=== PATIENT | male | born 1940 | race Caucasian/White ===

== ENCOUNTER 2018-09-28 15:21 | Emergency (ER) | payer MEDICARE, OTHER ==
--- NOTE | 2018-09-28 15:24 | EDM.PDOC ---
ED HPI GENERAL MEDICAL PROBLEM - General Chief Complaint: General Stated Complaint: Circulation Time Seen by Provider: 09/28/18 15:24 Source of Information: Reports: Patient, Family (), Old Records ([facility] chart/EMR) History Limitations: Reports: No Limitations - History of Present Illness INITIAL COMMENTS - FREE TEXT/NARRATIVE: The patient was brought to the emergency room via private automobile by his for evaluation of a three-day history of nonspecific "burning" and 3-4/10 bilateral intermittent foot pain with no history of acute injury. He has been working in the cold and snow during extended periods of time during the last several days, however has apparently been dressed appropriately including footwear with no distinct history of frostbite injury. His arthritis is otherwise been stable with exception of nonspecific right popliteal discomfort about 3 weeks ago with no history of dependent edema, etc.. The patient denies any chest pain/pressure, heart flutter, dizziness, orthostasis, orthopnea, diaphoresis, paresthesias, recent decreased exercise tolerance, or any other anginal-type symptoms. No recent history of abdominal pain, heartburn, nausea, diarrhea, melena, gross hematochezia, or any food intolerance, including fatty foods, etc.. The patient also denies any recent fever, cough, wheezing, dyspnea , etc.. He has noticed occasional mild cyanosis with the above symptoms with no pallor, paresthesias, neurological deficits, etc. Onset: Gradual Duration: Day(s):, Getting Worse, Intermittent Location: Reports: Lower Extremity, Left, Lower Extremity, Right. Denies: Head , Face, Neck, Chest, Abdomen, Back, Pelvis, Upper Extremity, Left, Upper Extremity, Right, Radiates to Quality: Reports: Ache, Burning Severity: Mild Improves with: Reports: None Worsens with: Reports: None Context: Reports: Other (As above). Denies: Sick Contact, Trauma Associated Symptoms: Denies: Confusion, Chest Pain, Cough, Diaphoresis, Fever/ Chills, Headaches, Loss of Appetite, Malaise, Nausea/Vomiting, Shortness of Breath, Syncope, Weakness Treatments [employer]: Reports: Other (see below) (None) Bilateral Feet Pain Score (Numeric/FACES): 3 - Related Data Allergies Allergy/AdvReac Type Severity Reaction Status Date / Time No Known Allergies Allergy Verified 09/28/18 17:30 Home Meds: Home Meds . [No Known Home Meds] 09/28/18 [History] Past Medical History HEENT History: Reports: Cataract, Impaired Vision, Other (See Below). Denies: Allergic Rhinitis, Glaucoma, Hard of Hearing, Macular Degeneration, Otitis Media , Retinal Detachment Other HEENT History: Patient wears glasses. Cardiovascular History: Reports: None. Denies: Afib, Aneurysm, Arrhythmia, Blood Clots/VTE/DVT, CAD, Heart Failure, Heart Murmur, High Cholesterol, Hypertension, NV, PVD, Syncope Respiratory History: Reports: Intubation, Previous, Sleep Apnea, Other (See Below). Denies: Asthma, Bronchitis, Recurrent, COPD, Intubation, Difficult, PE , Pneumothorax, TB Other Respiratory History: Sleep apnea with patient compliant with his CPAP. Gastrointestinal History: Reports: Cholelithiasis. Denies: Bowel Obstruction, Celiac Disease, Chronic Constipation, Chronic Diarrhea, Colon Polyp, Fecal Incontinence, Gastritis, GERD, GI Bleed, Hepatitis, Hiatal Hernia, Inflammatory Bowel Disease, Irritable Bowel Syndrome, Jaundice, Pancreatitis, PUD Genitourinary History: Reports: BPH, Prostate Disorder. Denies: Acute Renal Failure, Chronic Renal Insuffiency, Renal Calculus, Retention, Urinary, STD, Urinary Incontinence, UTI, Recurrent Musculoskeletal History: Reports: Arthritis, Back Pain, Chronic, Fracture, Neck Pain, Chronic, Osteoarthritis. Denies: Amputation, Gout, Osteoporosis, RA, SLE Other Musculoskeletal History: Left ankle fracture in 2016. Right rib fractures in 2016. Left clavicular fracture at age 15. Possible left distal first metacarpal fracture, however never evaluated in 2018. Digit #5 right foot fracture at age 15. Right shoulder separation/dislocation at about age 21. Right posterior medial meniscal tear in 2018 with conservative management and no surgery. Chronic CRP elevation. CRP elevation Neurological History: Reports: Concussion, Head Trauma, Other (See Below). Denies: Alzheimers Disease, Cerebral Aneurysms, CVA, Headaches, Chronic, Migraines, MS, Parkinson's, Seizure, TIA, Vertigo Other Neuro History: Head concussion at age 17. Psychiatric History: Reports: None. Denies: Abuse, Victim of, ADD, ADHD, Addiction, Anxiety, Depression, Psych Hospitalization(s), Psychosis, PTSD, Suicide Attempt, Suicidal Ideation Endocrine/Metabolic History: Reports: None. Denies: Diabetes, Type I, Diabetes , Type II, Hypothyroidism, IDDM Hematologic History: Reports: Anemia, Blood Transfusion(s), Other (See Below) Other Hematologic History: Transfusions after prostate surgery as below. Immunologic History: Reports: None. Denies: AIDS, HIV, SLE Oncologic (Cancer) History: Reports: Prostate. Denies: Basal Cell Carcinoma, Bladder, Colon, Hodgkin's Lymphoma, Leukemia, Lymphoma, Malignant Melanoma, Metastatic, Non-Hodgkin's Lymphoma, Squamous Cell Carcinoma Other Oncologic History: Prostate cancer at age 74 with prostatectomy as below with no chemotherapy, radiation therapy, etc. Dermatologic History: Reports: None. Denies: Eczema, Melanoma - Infectious Disease History Infectious Disease History: Reports: Chicken Pox, Measles, Mumps. Denies: C- Difficile, Meningitis, Mononucleosis, MRSA, Pertussis (Whooping Cough), Rheumatic Fever, Rubella, Scarlet Fever, Shingles, TB, VRE - Past Surgical History Head Surgeries/Procedures: Reports: None HEENT Surgical History: Reports: Oral Surgery, Other (See Below). Denies: Adenoidectomy, Eye Surgery, Laser Surgery, LASIK, Myringotomy w Tube(s), Naso- Sinus Surgery, Tonsillectomy Other HEENT Surgeries/Procedures: [place] teeth extraction 1 at age 51 with additional teeth extractions. Bilateral cataract surgery in about 2007. Cardiovascular Surgical History: Reports: None. Denies: Varicose Respiratory Surgical History: Reports: None. Denies: Thoracentesis GI Surgical History: Reports: Cholecystectomy, Colonoscopy, Other (See Below). Denies: Appendectomy, EGD, Hernia, Abdominal, Hernia, Inguinal, Hernia Repair/ Other, Polypectomy Other GI Surgeries/Procedures: Colonoscopy in about 2010. Laparoscopic cholecystectomy in 1992. Male Surgical History: Reports: Prostate Biopsy, Prostatectomy, Other (See Below). Denies: Circumcision, Vasectomy Other Male Surgeries/Procedures: Radical prostatectomy at age 74 with no orchidectomies. Endocrine Surgical History: Reports: None. Denies: Thyroid Biopsy Neurological Surgical History: Reports: None. Denies: C-Spine, Discectomy, Laminectomy, Lumbar Spine, Sacral Spine, Scoliosis, Spinal Fusion, Thoracic Spine, Vertebroplasty Musculoskeletal Surgical History: Reports: Shoulder Surgery, Other (See Below). Denies: Arthroscopic Procedure, Carpal Tunnel, Ganglion Cyst, Joint Replacement, ORIF Other Musculoskeletal Surgeries/Procedures:: Right rotator cuff repair in 2016. Oncologic Surgical History: Reports: None Dermatological Surgical History: Reports: None - Past Imaging History Past Imaging History: Reports: MRI (Right knee on 05/08/18.) Social & Family History - Tobacco Use Smoking Status *Q: Never Smoker Tobacco Use Within Last Twelve Months: No Used Tobacco, but Quit: No Smoking Cessation Information Provided To Patient: No Second Hand Smoke Exposure: No Second Hand Smoke Education Provided: No - Caffeine Use Caffeine Use: Reports: Coffee (1-2 Cups per day), Soda (Rarely). Denies: Energy Drinks, Tea - Alcohol Use Alcohol Use History: No Days Per Week of Alcohol Use: 0 Number of Drinks Per Day: 0 Number of Drinks Per Day Comment: No previous DWIs, problems with alcohol abuse , etc. Total Drinks Per Week: 0 Alcohol Use in Last Twelve Months: No - Recreational Drug Use Recreational Drug Use: No Drug Use in Last 12 Months: No Recreational Drug Type: Denies: Amphetamines (Speed), Cocaine, Heroin, Inhalants (Glues, Solvents, Aerosols), LSD (Acid), Marijuana/Hashish, Methamphetamine, Morphine, Oxycodone - Living Situation & Occupation Living situation: Reports: (1964, 3 children), with Family () Occupation: Employed ([employer]) ED ROS GENERAL - Review of Systems Review Of Systems: ROS reveals no pertinent complaints other than HPI. ED EXAM, GENERAL - Physical Exam Exam: See Below Exam Limited By: No Limitations General Appearance: Alert, WD/WN, No Apparent Distress Head: Atraumatic, Normocephalic Neck: Normal Inspection, Supple, Non-Tender, Full Range of Motion. No: Lymphadenopathy (L), Lymphadenopathy (R), Thyromegaly Respiratory/Chest: No Respiratory Distress, Lungs Clear, Normal Breath Sounds, No Accessory Muscle Use, Chest Non-Tender. No: Pleural Rub, Retractions Cardiovascular: Normal Peripheral Pulses, Regular Rate, Rhythm, No Edema, No Gallop, No JVD, No Murmur, No Rub. No: Gallop/S3, Gallop/S4, Friction Rub Peripheral Pulses: 2+: Radial (L), Radial (R), Posterior Tibial (L), Posterior Tibial (R), Dorsalis Pedis (L), Dorsalis Pedis (R) GI/Abdominal: Normal Bowel Sounds, Soft, Non-Tender, No Organomegaly, No Distention, No Abnormal Bruit, No Mass. No: Guarding (Male) Exam: Deferred Rectal (Males) Exam: Deferred Back Exam: Normal Inspection, Full Range of Motion. No: CVA Tenderness (L), CVA Tenderness (R), Muscle Spasm Extremities: Normal Range of Motion, Non-Tender, No Pedal Edema, Normal Capillary Refill, Leg Pain (Bilateral foot pain as above), Other (Minimal cyanosis in the toes bilaterally with otherwise normal pedal pulses, etc. as above). No: Joint Swelling, Gus's Sign, Increased Warmth, Redness Neurological: Alert, Oriented, CN II-XII Intact, Normal Cognition, Normal Gait, No Motor/Sensory Deficits Psychiatric: Normal Affect, Normal Mood Skin Exam: Warm, Dry, Intact, Normal Color, No Rash. No: Diaphoretic, Ecchymosis, Erythema, Lymphangitis, Pallor, Petechiae, Wound/Incision Lymphatic: No Adenopathy Course - Vital Signs Last Recorded V/S: Last Vital Signs Temp 36.8 C 09/28/18 15:25 Pulse 84 09/28/18 15:25 Resp 18 09/28/18 15:25 BP 158/82 H 09/28/18 15:25 Pulse Ox 98 09/28/18 15:25 Vital Signs - 24 hr 09/28/18 15:25 Temperature [ 36.8 C Temporal] Pulse, 84 Peripheral [ Right Pulse Oximetry] Respiratory 18 Rate Blood Pressure 158/82 H [Right Upper Arm] O2 Sat by Pulse 98 Oximetry - Orders/Labs/Meds Orders: Active Orders 24 hr Category Date Time Status Venous Doppler Lwr Ext Bi [US] Urgent Exams 09/28/18 15:26 Taken Obtain Past Medical Record [OM.PC] Routine Oth 09/28/18 15:24 Active Labs: Laboratory Tests 09/28/18 09/28/18 09/28/18 Range/Units 15:30 15:30 15:30 WBC 6.5 (4.0-10.2) K/uL RBC 5.04 (4.33-5.41) M/uL Hgb 15.4 (13.1-16.8) g/dL Hct 44.1 (39.0-49.0) % MCV 87.5 (84.0-98.0) fL MCH 30.6 (28.2-33.3) pg MCHC 34.9 (31.7-36.0) g/dL RDW 14.2 H (11.2-14.1) % Plt Count 251 (150-350) K/uL Neut % (Auto) 59.3 (45.0-80.0) % Lymph % (Auto) 30.8 (10.0-50.0) % Colbert % (Auto) 7.9 (2.0-14.0) % Eos % (Auto) 1.7 (0.0-5.0) % Baso % (Auto) 0.3 (0.0-2.0) % Neut # (Auto) 3.85 (1.40-7.00) K/uL Lymph # (Auto) 2.00 (0.50-3.50) K/uL Colbert # (Auto) 0.51 (0.00-1.00) K/uL Eos # (Auto) 0.11 (0.00-0.50) K/uL Baso # (Auto) 0.02 (0.00-0.20) K/uL PT 10.7 (9.5-12.0) SEC INR 1.0 APTT 31.7 H (21.0-31.3) SEC D-Dimer, Quantitative (0-400) ng/mL Sodium 138 (136-145) mmol/L Potassium 4.1 (3.5-5.1) mmol/L Chloride 101 (98-107) mmol/L Carbon Dioxide 29.6 (21.0-32.0) mmol/L BUN 18 (7-18) mg/dL Creatinine 1.01 (0.51-1.17) mg/dL Est Cr Clr Drug Dosing 61.25 mL/min Estimated GFR (MDRD) > 60 mL/min Glucose 111 H (74-106) mg/dL Calcium 8.9 (8.5-10.1) mg/dL Total Bilirubin 0.9 (0.2-1.0) mg/dL AST 18 (15-37) U/L ALT 32 (12-78) U/L Alkaline Phosphatase 97 (46-116) IU/L C-Reactive Protein 0.0 (<=0.9) mg/dL Total Protein 7.5 (6.4-8.2) g/dL Albumin 4.3 (3.4-5.0) g/dL Vitamin B12 379 (193-986) pg/mL TSH, Ultra Sensitive 3.650 (0.358-3.740) mIU/mL 09/28/18 Range/Units 15:30 WBC (4.0-10.2) K/uL RBC (4.33-5.41) M/uL Hgb (13.1-16.8) g/dL Hct (39.0-49.0) % MCV (84.0-98.0) fL MCH (28.2-33.3) pg MCHC (31.7-36.0) g/dL RDW (11.2-14.1) % Plt Count (150-350) K/uL Neut % (Auto) (45.0-80.0) % Lymph % (Auto) (10.0-50.0) % Colbert % (Auto) (2.0-14.0) % Eos % (Auto) (0.0-5.0) % Baso % (Auto) (0.0-2.0) % Neut # (Auto) (1.40-7.00) K/uL Lymph # (Auto) (0.50-3.50) K/uL Colbert # (Auto) (0.00-1.00) K/uL Eos # (Auto) (0.00-0.50) K/uL Baso # (Auto) (0.00-0.20) K/uL PT (9.5-12.0) SEC INR APTT (21.0-31.3) SEC D-Dimer, Quantitative < 100 (0-400) ng/mL Sodium (136-145) mmol/L Potassium (3.5-5.1) mmol/L Chloride (98-107) mmol/L Carbon Dioxide (21.0-32.0) mmol/L BUN (7-18) mg/dL Creatinine (0.51-1.17) mg/dL Est Cr Clr Drug Dosing mL/min Estimated GFR (MDRD) mL/min Glucose (74-106) mg/dL Calcium (8.5-10.1) mg/dL Total Bilirubin (0.2-1.0) mg/dL AST (15-37) U/L ALT (12-78) U/L Alkaline Phosphatase (46-116) IU/L C-Reactive Protein (<=0.9) mg/dL Total Protein (6.4-8.2) g/dL Albumin (3.4-5.0) g/dL Vitamin B12 (193-986) pg/mL TSH, Ultra Sensitive (0.358-3.740) mIU/mL Meds: None - Radiology Interpretation Free Text/Narrative:: Preliminary verbal report from [facility], of venous Doppler studies of the lower extremities bilaterally were normal with exception of a small left De La Paz's cyst in the popliteal region. No evidence of DVT, etc. Departure - Departure Time of Disposition: 18:00 Disposition: Home, Self-Care 01 Clinical Impression: Bilateral foot pain Osteoarthritis Qualifiers: Osteoarthritis location: multiple joints Osteoarthritis type: primary Qualified Code(s): M15.0 - Primary generalized (osteo)arthritis De La Paz's cyst of knee Qualifiers: Laterality: left Qualified Code(s): M71.22 - Synovial cyst of popliteal space [ De La Paz], left knee - Discharge Information *PRESCRIPTION DRUG MONITORING PROGRAM REVIEWED*: Not Applicable *COPY OF PRESCRIPTION DRUG MONITORING REPORT IN PATIENT BECKI: Not Applicable Referrals: Sancho Silva MD [Primary Care Provider] - Forms: ED Department Discharge Additional Instructions: 1. Followup with your regular provider in 10-14 days as directed for reevaluation and recommended repeat ERCP. Consider additional JUAN J, rheumatoid factor, uric acid level, etc. depending on his clinical course of symptoms. Bring these discharge instructions with you to that visit. 2. Tylenol 650 mg by mouth every 4 hours and/or OTC ibuprofen 2-3 tabs by mouth every 6 hours with food as directed./needed. You may stagger these medications for 48-72 hours only, which essentially means that you are receiving a pain medication about every 2 hours. 3. BenGay or equivalent, heating pad, and/or ice packs as directed. 4. Consider initiation of aspirin 81 mg by mouth daily with food as discussed 5. This facility will call you tomorrow for scheduling of recommended ALLISON screen for evaluation of your circulation in your feet with results to be discussed with your regular provider at the above follow-up. 6. Immediately after this visit verify that your cellular telephone's voicemail has been activated and is empty. Also verify that your home telephone 's answering machine is operating properly and has space to receive messages. Note that it is sometimes necessary for us to be able to contact you at a later date to discuss your medical care. 7. Please remember that we are ALWAYS here for you and want to answer any questions you may have. Feel free to call the hospital any time and we call you back [facility]. 8. Consider influenza booster [facility] and also on a yearly basis as discussed. - Problem List & Annotations (1) Bilateral foot pain SNOMED Code(s): 76407829 Code(s): M79.671 - PAIN IN RIGHT FOOT; M79.672 - PAIN IN LEFT FOOT Status: Acute Priority: High Onset Date: ~09/25/18 Annotation/Comment:: Probable symptoms related to cold exposure without significant frostbite injury. Patient will return to this facility [facility] for an ALLISON screen with close follow-up with his regular provider as per discharge instructions. Patient did not wish to initiate low-dose ASA therapy at this time. Further workup depending on his clinical course with no direct indication for aggressive invasive vascular studies at this time. (2) De La Paz's cyst of knee SNOMED Code(s): 192483364 Code(s): M71.20 - SYNOVIAL CYST OF POPLITEAL SPACE [DE LA PAZ], UNSPECIFIED KNEE Status: Acute Annotation/Comment:: Nonsymptomatic. Observe for now. Note patient did not wish to have surgery for his previous meniscal tear as above. Qualifiers: Laterality: left Qualified Code(s): M71.22 - Synovial cyst of popliteal space [De La Paz], left knee (3) Osteoarthritis SNOMED Code(s): 922851910 Code(s): M19.90 - UNSPECIFIED OSTEOARTHRITIS, UNSPECIFIED SITE Status: Chronic Priority: Medium Annotation/Comment:: Otherwise stable by history. Note chronic CRP elevation based on previous medical records. The patient did not wish to have a Depo-Medrol injection today. Qualifiers: Osteoarthritis location: multiple joints Osteoarthritis type: primary Qualified Code(s): M15.0 - Primary generalized (osteo)arthritis - Problem List Review Problem List Initiated/Reviewed/Updated: Yes - My Orders Last 24 Hours: My Active Orders 09/28/18 15:24 Obtain Past Medical Record [OM.PC] Routine 09/28/18 15:26 Venous Doppler Lwr Ext Bi [US] Urgent - Assessment/Plan Last 24 Hours: My Active Orders 09/28/18 15:24 Obtain Past Medical Record [OM.PC] Routine 09/28/18 15:26 Venous Doppler Lwr Ext Bi [US] Urgent Assessment:: As above Plan: As above. Extensive precautions were given to the patient and his , who are in agreement with the treatment plan. See Patient Instructions for further treatment and plan.
[2018-09-28 16:31] LABS: CHLORIDE,CL 101 mmol/L (98-107); SODIUM,NA 138 mmol/L (136-145)
== END 2018-09-28 18:00 | disposition home or self-care (01) ==
LOC: LL.ED 15:21
DX: M79.672 Pain in left foot (principal); M79.671 Pain in right foot; M15.0 Primary generalized (osteo)arthritis; M71.22 Synovial cyst of popliteal space [Baker], left knee
CPT/HCPCS: 36415; 80053; 82607; 84443; 85025; 85379; 85610; 85730; 86140; 93970; 99283; 99283-25

== ENCOUNTER 2024-02-28 16:30 | Emergency (ER) | payer MEDICARE, OTHER ==
[2024-02-28] MEDS: Bupivacaine 0.5% 10 ML SDV INJECT ONE (17:14)
[2024-02-28] MEDS: Take Home: Acetaminophen/HYDROcodone 325-5 MG, 5 Tab Pack PO ONE (18:24)
[2024-02-28] MEDS: Cephalexin 500 MG Cap PO ONE (18:24)
== END 2024-02-28 18:30 | disposition home or self-care (01) ==
LOC: LL.ED 16:30
DX: S68.011A Complete traumatic metacarpophalangeal amputation of right thumb, initial encounter (principal); W26.8XXA Contact with other sharp object(s), not elsewhere classified, initial encounter
CPT/HCPCS: 12002; 73140-FA; 99284; A9270-GY; J0665